=== PATIENT | male | born 1955 | race Caucasian/White ===

== ENCOUNTER 2022-09-27 11:08 | Emergency (ER) | payer MEDICARE ==
[~2022-09-27] VITALS: Ht 177.8 cm; Wt 93.2 kg
[2022-09-27 11:09] VITALS: BP 168/69
== END 2022-09-27 12:20 | disposition home or self-care (01) ==
LOC: ER 11:09
DX: L98.418 Non-pressure chronic ulcer of buttock with other specified severity (principal); Z88.2 Allergy status to sulfonamides; Z79.899 Other long term (current) drug therapy
CPT/HCPCS: 99281; A6223; A6212; A6213